=== PATIENT | male | born 1940 | race Caucasian/White ===

== ENCOUNTER 2016-06-18 18:04 | Inpatient (IN) | payer MEDICARE ==
[~2016-06-18] VITALS: Ht 180.3 cm; Wt 70.8 kg
[2016-06-18] MEDS ORDERED: FUROSEMIDE 40 MG/4 ML IV ONE (19:00)
[2016-06-18] MEDS ORDERED: SODIUM CHLORIDE FLUSH 10ML SYR IVF ONE (19:00)
[2016-06-18] MEDS ORDERED: FUROSEMIDE 40 MG/4 ML ONE (19:37)
[2016-06-18 19:49] LABS: ASPARTATE AMINO TRANSFERASE 16 U/L (15-37); BLOOD UREA NITROGEN 38 mg/dL (7-18)
[2016-06-18] MEDS ORDERED: LIDOCAINE 1%, 20ML ONE (19:51)
[2016-06-18 19:55] LABS: IS PT STATUS REG ER OR PRE ER? YES
[2016-06-18] MEDS ORDERED: SODIUM CHLORIDE 0.9% 1,000ML IVBOLUS ONE (20:00)
[2016-06-18] MEDS ORDERED: SODIUM CHLORIDE 0.9% 1,000 ML IV ONE (20:00)
[2016-06-18] MEDS ORDERED: PHEN100C PO (21:03)
[2016-06-18] MEDS ORDERED: AZIT500T PO (21:09)
[2016-06-18] MEDS ORDERED: METO25TA35 PO (21:09)
[2016-06-18] MEDS ORDERED: RIVA20TA PO (21:09)
[2016-06-18] MEDS ORDERED: CHOL200040 PO (21:09)
[2016-06-18] MEDS ORDERED: CYAN250013 PO (21:09)
[2016-06-18] MEDS ORDERED: HALO5TAB5 PO (21:09)
[2016-06-18] MEDS ORDERED: FOLI-17 PO (21:09)
[2016-06-18] MEDS ORDERED: SERT100T PO (21:09)
[2016-06-18] MEDS ORDERED: ACETAMINOPHEN 325 MG TABLET PO PRN (22:00)
[2016-06-18 22:26] VITALS: BP 126/53
[2016-06-18] MEDS ORDERED: ALBUTEROL/IPRATROPIUM 2.5MG/0.5MG, 3 ML NPPB PRN (23:00)
[2016-06-18 23:26] LABS: IS PT STATUS REG ER OR PRE ER? NO
[2016-06-19 00:48] VITALS: BP 124/78
[2016-06-19 06:29] LABS: BLOOD UREA NITROGEN 39 mg/dL (7-18)
[2016-06-19 06:47] VITALS: BP 150/81
[2016-06-19 07:03] LABS: IS PT STATUS REG ER OR PRE ER? NO
[2016-06-19] MEDS ORDERED: FUROSEMIDE 40 MG/4 ML ONE (08:40)
[2016-06-19] MEDS ORDERED: AZITHROMYCIN 500 MG TABLET PO SCH (09:00)
[2016-06-19] MEDS: SERTRALINE 100MG TABLET PO SCH (09:04)
[2016-06-19] MEDS: FUROSEMIDE 40 MG/4 ML IV SCH ×2 (09:04→17:16)
[2016-06-19] MEDS: CHOLECALCIFEROL 1,000 UNIT TABLET PO SCH (09:05)
[2016-06-19] MEDS: METOPROLOL TARTRATE 25 MG TABLET PO SCH (09:05)
[2016-06-19] MEDS: FOLIC ACID 1 MG TABLET PO SCH (09:05)
[2016-06-19] MEDS: CYANOCOBALAMIN 1,000 MCG TABLET PO SCH (09:05)
[2016-06-19] MEDS: HALOPERIDOL 1 MG TABLET PO SCH ×2 (09:06→20:11)
[2016-06-19] MEDS: PHENYTOIN 100 MG CAPSULE PO SCH ×2 (09:09→20:11)
[2016-06-19 12:50] LABS: IS PT STATUS REG ER OR PRE ER? NO
[2016-06-19 13:10] VITALS: BP 102/67
[2016-06-19 13:19] VITALS: BP 144/96
[2016-06-19 19:32] VITALS: BP 135/81
[2016-06-19] MEDS: RIVAROXABAN 20 MG TABLET PO SCH (20:11)
[2016-06-20 01:09] VITALS: BP 143/95
[2016-06-20 06:17] LABS: BLOOD UREA NITROGEN 41 mg/dL (7-18)
[2016-06-20 06:22] LABS: ASPARTATE AMINO TRANSFERASE 15 U/L (15-37); IS PT STATUS REG ER OR PRE ER? NO
[2016-06-20 06:38] LABS: HEMOGLOBIN 12.3 g/dL (13.7-18.0)
[2016-06-20 07:05] LABS: ANISOCYTOSIS 1+
[2016-06-20 07:06] LABS: OVALOCYTES 1+
[2016-06-20 07:55] VITALS: BP 131/86
[2016-06-20] MEDS: FOLIC ACID 1 MG TABLET PO SCH (08:01)
[2016-06-20] MEDS: SERTRALINE 100MG TABLET PO SCH (08:01)
[2016-06-20] MEDS: HALOPERIDOL 1 MG TABLET PO SCH ×2 (08:01→20:50)
[2016-06-20] MEDS: METOPROLOL TARTRATE 25 MG TABLET PO SCH (08:01)
[2016-06-20] MEDS: PHENYTOIN 100 MG CAPSULE PO SCH ×2 (08:01→20:49)
[2016-06-20] MEDS: CHOLECALCIFEROL 1,000 UNIT TABLET PO SCH (08:01)
[2016-06-20] MEDS: CYANOCOBALAMIN 1,000 MCG TABLET PO SCH (08:01)
[2016-06-20] MEDS ORDERED: REGADENOSON 0.4 MG/5 ML SYRINGE ONE (08:19)
[2016-06-20] MEDS ORDERED: FUROSEMIDE 40 MG/4 ML IV SCH (09:00)
[2016-06-20 13:32] VITALS: BP 132/69
[2016-06-20 20:05] VITALS: BP 141/83
[2016-06-20] MEDS: RIVAROXABAN 20 MG TABLET PO SCH (20:50)
[2016-06-21 01:52] VITALS: BP 126/69
[2016-06-21 05:45] LABS: HEMOGLOBIN 12.7 g/dL (13.7-18.0)
[2016-06-21 05:49] LABS: BLOOD UREA NITROGEN 36 mg/dL (7-18)
[2016-06-21 06:00] VITALS: BP 129/87
[2016-06-21] MEDS ORDERED: CARVEDILOL 3.125 MG TABLET PO SCH (06:00)
[2016-06-21 07:25] VITALS: BP 134/83
[2016-06-21] MEDS: PHENYTOIN 100 MG CAPSULE PO SCH ×2 (09:00→20:48)
[2016-06-21] MEDS: CHOLECALCIFEROL 1,000 UNIT TABLET PO SCH (09:36)
[2016-06-21] MEDS: SERTRALINE 100MG TABLET PO SCH (09:36)
[2016-06-21] MEDS: CYANOCOBALAMIN 1,000 MCG TABLET PO SCH (09:36)
[2016-06-21] MEDS: HALOPERIDOL 1 MG TABLET PO SCH ×2 (09:37→20:47)
[2016-06-21] MEDS: POTASSIUM CHLORIDE 20 MEQ TAB.ER.PRT PO SCH ×2 (09:37→13:34)
[2016-06-21] MEDS: FOLIC ACID 1 MG TABLET PO SCH (09:37)
[2016-06-21 12:10] VITALS: BP 108/71
[2016-06-21] MEDS: RIVAROXABAN 15 MG TABLET PO SCH (17:56)
[2016-06-21] MEDS: CARVEDILOL 6.25 MG TABLET PO SCH (17:57)
[2016-06-21 20:08] VITALS: BP 100/53
[2016-06-21] MEDS: ATORVASTATIN 20 MG TABLET PO SCH (20:49)
[2016-06-22 02:38] VITALS: BP 115/77
[2016-06-22 05:25] VITALS: BP 107/68
[2016-06-22] MEDS: CARVEDILOL 6.25 MG TABLET PO SCH ×2 (05:26→17:51)
[2016-06-22 06:12] LABS: HEMOGLOBIN 12.4 g/dL (13.7-18.0)
[2016-06-22 06:25] LABS: BLOOD UREA NITROGEN 37 mg/dL (7-18)
[2016-06-22 06:40] VITALS: BP 96/60
[2016-06-22] MEDS: POTASSIUM CHLORIDE 20 MEQ TAB.ER.PRT PO SCH ×2 (08:12→17:50)
[2016-06-22] MEDS: FUROSEMIDE 20 MG TABLET PO SCH (08:12)
[2016-06-22] MEDS: FOLIC ACID 1 MG TABLET PO SCH (08:13)
[2016-06-22] MEDS: CYANOCOBALAMIN 1,000 MCG TABLET PO SCH (08:13)
[2016-06-22] MEDS: PHENYTOIN 100 MG CAPSULE PO SCH ×2 (08:13→21:40)
[2016-06-22] MEDS: HALOPERIDOL 1 MG TABLET PO SCH ×2 (08:13→21:40)
[2016-06-22] MEDS: CHOLECALCIFEROL 1,000 UNIT TABLET PO SCH (08:14)
[2016-06-22] MEDS: SERTRALINE 100MG TABLET PO SCH (08:14)
[2016-06-22 12:40] VITALS: BP 97/65
[2016-06-22] MEDS: RIVAROXABAN 15 MG TABLET PO SCH (17:50)
[2016-06-22 20:53] VITALS: BP 92/63
[2016-06-22 21:35] VITALS: BP 100/67
[2016-06-22] MEDS: ATORVASTATIN 20 MG TABLET PO SCH (21:40)
[2016-06-23 02:19] VITALS: BP 100/67
[2016-06-23] MEDS: CARVEDILOL 6.25 MG TABLET PO SCH ×2 (06:09→17:20)
[2016-06-23 06:20] LABS: BLOOD UREA NITROGEN 38 mg/dL (7-18)
[2016-06-23 07:04] VITALS: BP 105/68
[2016-06-23] MEDS: POTASSIUM CHLORIDE 20 MEQ TAB.ER.PRT PO SCH (08:00)
[2016-06-23] MEDS: FOLIC ACID 1 MG TABLET PO SCH (08:32)
[2016-06-23] MEDS: PHENYTOIN 100 MG CAPSULE PO SCH ×2 (08:32→21:53)
[2016-06-23] MEDS: FUROSEMIDE 20 MG TABLET PO SCH (08:32)
[2016-06-23] MEDS: HALOPERIDOL 1 MG TABLET PO SCH ×2 (08:33→21:53)
[2016-06-23] MEDS: SERTRALINE 100MG TABLET PO SCH (08:33)
[2016-06-23] MEDS: CHOLECALCIFEROL 1,000 UNIT TABLET PO SCH (08:33)
[2016-06-23] MEDS: CYANOCOBALAMIN 1,000 MCG TABLET PO SCH (08:33)
[2016-06-23 13:13] VITALS: BP 119/68
[2016-06-23] MEDS: SODIUM CHLORIDE 0.9% 1,000 ML IV SCH (17:19)
[2016-06-23] MEDS: RIVAROXABAN 15 MG TABLET PO SCH (17:19)
[2016-06-23 20:30] VITALS: BP 111/69
[2016-06-23] MEDS: ATORVASTATIN 20 MG TABLET PO SCH (21:53)
[2016-06-24 01:44] VITALS: BP 119/77
[2016-06-24] MEDS: SODIUM CHLORIDE 0.9% 1,000 ML IV SCH (04:16)
[2016-06-24 06:19] LABS: BLOOD UREA NITROGEN 37 mg/dL (7-18)
[2016-06-24] MEDS: CARVEDILOL 6.25 MG TABLET PO SCH ×2 (06:22→16:39)
[2016-06-24 08:22] VITALS: BP 116/80
[2016-06-24] MEDS: PHENYTOIN 100 MG CAPSULE PO SCH (09:00)
[2016-06-24] MEDS: FOLIC ACID 1 MG TABLET PO SCH (09:36)
[2016-06-24] MEDS: HALOPERIDOL 1 MG TABLET PO SCH (09:37)
[2016-06-24] MEDS: CHOLECALCIFEROL 1,000 UNIT TABLET PO SCH (09:38)
[2016-06-24] MEDS: SERTRALINE 100MG TABLET PO SCH (09:38)
[2016-06-24] MEDS: CYANOCOBALAMIN 1,000 MCG TABLET PO SCH (09:45)
[2016-06-24] MEDS ORDERED: RIVA15TA PO (11:25)
[2016-06-24] MEDS ORDERED: METO25TA35 PO (11:25)
[2016-06-24] MEDS ORDERED: MULT-412 PO (11:25)
[2016-06-24] MEDS ORDERED: ATOR20TA9 PO (11:25)
[2016-06-24] MEDS ORDERED: FURO40TA6 PO (11:25)
[2016-06-24] MEDS ORDERED: IPRA3AMP NPPB (11:25)
[2016-06-24 12:49] VITALS: BP 120/79
[2016-06-24] MEDS: RIVAROXABAN 15 MG TABLET PO SCH (16:39)
[2016-06-25] MEDS ORDERED: FUROSEMIDE 40 MG TABLET PO SCH (07:30)
== END 2016-06-24 17:44 | disposition home health service (06) | DRG 280 ==
LOC: ED 20:29 → EDIP 20:30 → 4EST 22:10
PROVIDERS: ADMIT Internal Medicine; ATTEND Internal Medicine
PROC: 0W993ZZ Drainage of Right Pleural Cavity, Percutaneous Approach (ICD-10-PCS; principal; 2016-06-18)
PROC: BB4BZZZ Ultrasonography of Pleura (ICD-10-PCS; 2016-06-18)
DX: I13.0 Hypertensive heart and chronic kidney disease with heart failure and stage 1 through stage 4 chronic kidney disease, or unspecified chronic kidney disease (principal); I21.4 Non-ST elevation (NSTEMI) myocardial infarction; I50.43 Acute on chronic combined systolic (congestive) and diastolic (congestive) heart failure; N17.9 Acute kidney failure, unspecified; I47.2 Ventricular tachycardia; J98.11 Atelectasis; J90 Pleural effusion, not elsewhere classified; I42.9 Cardiomyopathy, unspecified; E86.0 Dehydration; F03.90 Unspecified dementia, unspecified severity, without behavioral disturbance, psychotic disturbance, mood disturbance, and anxiety; G40.909 Epilepsy, unspecified, not intractable, without status epilepticus; I08.1 Rheumatic disorders of both mitral and tricuspid valves; I27.2 Other secondary pulmonary hypertension; I48.91 Unspecified atrial fibrillation; I49.3 Ventricular premature depolarization; M81.0 Age-related osteoporosis without current pathological fracture; N18.3 Chronic kidney disease, stage 3 (moderate); Z66 Do not resuscitate; Z79.01 Long term (current) use of anticoagulants; Z82.49 Family history of ischemic heart disease and other diseases of the circulatory system; Z86.711 Personal history of pulmonary embolism; Z86.718 Personal history of other venous thrombosis and embolism; Z87.891 Personal history of nicotine dependence; Z91.041 Radiographic dye allergy status
CPT/HCPCS: 32555; 36415; 71010; 71020; 78452; 80048; 80053; 80185; 82040; 82150; 82306; 82607; 82746; 82945; 83605; 83615; 83735; 83880; 83986; 84132; 84157; 84439; 84443; 84484; 85025; 85610; 85730; 87040; 87070; 87205; 89051; 93005; 93017; 93306; 96374; J1940; J2785; J3490; A9502; C9898; J7030

== ENCOUNTER → 2016-06-18 | Outpatient (CLI) | payer MEDICARE ==
[~2016-06-18] MED LIST: AZIT500T PO; CHOL200040 PO; CYAN250013 PO; FOLI-17 PO; HALO5TAB5 PO; METO25TA35 PO; PHEN100C PO; RIVA20TA PO; SERT100T PO
[2016-06-18 12:31] LABS: HEMOGLOBIN 12.2 g/dL (13.7-18.0)
[2016-06-18 12:36] LABS: ASPARTATE AMINO TRANSFERASE 17 U/L (15-37); BLOOD UREA NITROGEN 33 mg/dL (7-18)
== END | disposition home or self-care (01) ==
LOC: CFH 10:21
PROVIDERS: ATTEND Physician Assistant
DX: J90 Pleural effusion, not elsewhere classified (principal); J98.11 Atelectasis; M45.4 Ankylosing spondylitis of thoracic region; M45.6 Ankylosing spondylitis lumbar region; I10 Essential (primary) hypertension; D64.9 Anemia, unspecified; N28.89 Other specified disorders of kidney and ureter
CPT/HCPCS: 36415; 71020; 80053; 85025

== ENCOUNTER 2016-07-07 11:58 | Inpatient (IN) | payer MEDICARE ==
[~2016-07-07] VITALS: Ht 180.3 cm; Wt 73.0 kg
[~2016-07-07 11:58] MED LIST changes: +ATOR20TA9 PO; +FURO40TA6 PO; +IPRA3AMP NPPB; +MULT-412 PO; +RIVA15TA PO
[2016-07-07] MEDS ORDERED: SODIUM CHLORIDE FLUSH 10ML SYR IVF ONE (13:00)
[2016-07-07 13:14] LABS: BLOOD UREA NITROGEN 36 mg/dL (7-18)
[2016-07-07 13:37] LABS: IS PT STATUS REG ER OR PRE ER? YES
[2016-07-07] MEDS ORDERED: ENOXAPARIN 80 MG/0.8 ML SQ ONE (14:30)
[2016-07-07] MEDS ORDERED: FUROSEMIDE 40 MG/4 ML IVPush ONE (14:30)
[2016-07-07] MEDS ORDERED: ASPIRIN 81 MG TABLET CHEW PO ONE (14:30)
[2016-07-07] MEDS ORDERED: LEVOFLOXACIN/PMX 750MG/150ML 150 ML IV ONE (14:30)
[2016-07-07] MEDS ORDERED: ASPIRIN 81 MG TABLET CHEW ONE (14:34)
[2016-07-07] MEDS ORDERED: FUROSEMIDE 40 MG/4 ML ONE (14:34)
[2016-07-07] MEDS ORDERED: ENOXAPARIN 80 MG/0.8 ML ONE (14:34)
[2016-07-07] MEDS ORDERED: LEVOFLOXACIN/PMX 750MG/150ML 150 ML ONE (14:35)
[2016-07-07] MEDS ORDERED: ONDANSETRON 2MG/ML, 2ML IVP PRN (15:00)
[2016-07-07] MEDS ORDERED: ALBUTEROL/IPRATROPIUM 2.5MG/0.5MG, 3 ML NPPB PRN (15:00)
[2016-07-07] MEDS ORDERED: ONDANSETRON ODT 4 MG PO PRN (15:00)
[2016-07-07] MEDS ORDERED: LABETALOL 5MG/ML, 20ML IV PRN (15:00)
[2016-07-07] MEDS ORDERED: POLYETHYLENE GLYCOL 17 GM PACKET PO PRN (15:00)
[2016-07-07] MEDS ORDERED: DIPHENHYDRAMINE 50 MG/ML, 1ML IVPush ONE (15:30)
[2016-07-07 15:33] VITALS: BP 106/71
[2016-07-07 15:34] LABS: IS PT STATUS REG ER OR PRE ER? YES
[2016-07-07 17:05] VITALS: BP 118/71
[2016-07-07] MEDS: RIVAROXABAN 15 MG TABLET PO SCH (17:06)
[2016-07-07] MEDS: FUROSEMIDE 40 MG/4 ML IV SCH (17:06)
[2016-07-07] MEDS ORDERED: PNEUMOCOCCAL 23 VACCINE IM-VACC ONE (18:00)
[2016-07-07 19:08] VITALS: BP 98/61
[2016-07-07] MEDS ORDERED: HALOPERIDOL 5 MG TABLET PO SCH (21:00)
[2016-07-07] MEDS: PHENYTOIN 100 MG CAPSULE PO SCH (21:14)
[2016-07-07] MEDS: ATORVASTATIN 20 MG TABLET PO SCH (21:14)
[2016-07-07] MEDS: METOPROLOL TARTRATE 25 MG TABLET PO SCH (21:14)
[2016-07-07 21:42] LABS: IS PT STATUS REG ER OR PRE ER? NO
[2016-07-08 01:21] VITALS: BP 107/65
[2016-07-08 06:08] LABS: ASPARTATE AMINO TRANSFERASE 15 U/L (15-37); BLOOD UREA NITROGEN 38 mg/dL (7-18)
[2016-07-08 07:54] VITALS: BP 141/85
[2016-07-08] MEDS: METOPROLOL TARTRATE 25 MG TABLET PO SCH ×2 (08:25→20:38)
[2016-07-08] MEDS: SENNA/DOCUSATE TABLET PO SCH (08:25)
[2016-07-08] MEDS: SERTRALINE 100MG TABLET PO SCH (08:25)
[2016-07-08] MEDS: FUROSEMIDE 40 MG/4 ML IV SCH ×2 (08:26→17:48)
[2016-07-08] MEDS: CHOLECALCIFEROL 1,000 UNIT TABLET PO SCH (08:26)
[2016-07-08] MEDS: PHENYTOIN 100 MG CAPSULE PO SCH ×2 (08:26→20:38)
[2016-07-08] MEDS: FOLIC ACID 1 MG TABLET PO SCH (08:26)
[2016-07-08] MEDS: MULTIVITAMIN 1 TABLET PO SCH (08:26)
[2016-07-08] MEDS: GUAIFENESIN/DM 200-20MG, 10ML UDC PO PRN (08:28)
[2016-07-08] MEDS: CYANOCOBALAMIN 1,000 MCG TABLET PO SCH (08:28)
[2016-07-08] MEDS: HALOPERIDOL 0.5 MG TABLET PO SCH ×2 (10:24→20:39)
[2016-07-08] MEDS ORDERED: POTASSIUM CHLORIDE 20 MEQ TAB.ER.PRT PO ONE (12:00)
[2016-07-08] MEDS ORDERED: PNEUMOCOCCAL 23 VACCINE IM-VACC ONE (13:00)
[2016-07-08 14:36] VITALS: BP 112/66
[2016-07-08] MEDS: RIVAROXABAN 15 MG TABLET PO SCH (17:48)
[2016-07-08 19:45] VITALS: BP 123/74
[2016-07-08] MEDS: ATORVASTATIN 20 MG TABLET PO SCH (20:38)
[2016-07-09 01:06] VITALS: BP 112/68
[2016-07-09 08:32] VITALS: BP 156/77
[2016-07-09] MEDS: CYANOCOBALAMIN 1,000 MCG TABLET PO SCH (09:50)
[2016-07-09] MEDS: PHENYTOIN 100 MG CAPSULE PO SCH ×2 (09:50→22:09)
[2016-07-09] MEDS: MULTIVITAMIN 1 TABLET PO SCH (09:50)
[2016-07-09] MEDS: SENNA/DOCUSATE TABLET PO SCH (09:50)
[2016-07-09] MEDS: SERTRALINE 100MG TABLET PO SCH (09:50)
[2016-07-09] MEDS: METOPROLOL TARTRATE 25 MG TABLET PO SCH ×2 (09:51→22:09)
[2016-07-09] MEDS: FOLIC ACID 1 MG TABLET PO SCH (09:51)
[2016-07-09] MEDS: CHOLECALCIFEROL 1,000 UNIT TABLET PO SCH (09:51)
[2016-07-09] MEDS: HALOPERIDOL 0.5 MG TABLET PO SCH ×2 (10:22→22:08)
[2016-07-09] MEDS ORDERED: HEPARIN 25,000 UNITS/500ML PMX 500 ML IV PRN (12:00)
[2016-07-09 14:56] VITALS: BP 120/54
[2016-07-09 18:53] VITALS: BP 119/67
[2016-07-09] MEDS ORDERED: APIXABAN 2.5 MG TABLET PO SCH (21:00)
[2016-07-09] MEDS: ATORVASTATIN 20 MG TABLET PO SCH (22:09)
[2016-07-09] MEDS: APIXABAN 2.5 MG TABLET PO SCH (22:09)
[2016-07-10] VITALS (8 sets, daily range): BP systolic 97–129; BP diastolic 57–80
[2016-07-10] MEDS ORDERED: POTASSIUM CHLORIDE 20 MEQ TAB.ER.PRT ONE (04:23)
[2016-07-10] MEDS ORDERED: POTASSIUM CHLORIDE 20 MEQ TAB.ER.PRT PO ONE (04:30)
[2016-07-10 05:44] LABS: BLOOD UREA NITROGEN 40 mg/dL (7-18)
[2016-07-10 05:51] LABS: ASPARTATE AMINO TRANSFERASE 9 U/L (15-37)
[2016-07-10 05:54] LABS: IS PT STATUS REG ER OR PRE ER? NO
[2016-07-10] MEDS ORDERED: PHARMACY MAY ADJ FOR RENAL FX MC PRN (08:00)
[2016-07-10] MEDS ORDERED: HALOPERIDOL 0.5 MG TABLET PO PRN (08:00)
[2016-07-10] MEDS: PHENYTOIN 100 MG CAPSULE PO SCH ×2 (09:00→23:40)
[2016-07-10] MEDS: FUROSEMIDE 40 MG/4 ML IV SCH (09:00)
[2016-07-10] MEDS: FOLIC ACID 1 MG TABLET PO SCH (09:01)
[2016-07-10] MEDS: METOPROLOL TARTRATE 25 MG TABLET PO SCH (09:01)
[2016-07-10] MEDS: SERTRALINE 100MG TABLET PO SCH (09:01)
[2016-07-10] MEDS: MULTIVITAMIN 1 TABLET PO SCH (09:01)
[2016-07-10] MEDS: CYANOCOBALAMIN 1,000 MCG TABLET PO SCH (09:01)
[2016-07-10] MEDS: APIXABAN 2.5 MG TABLET PO SCH ×2 (09:02→23:40)
[2016-07-10] MEDS: SENNA/DOCUSATE TABLET PO SCH (09:02)
[2016-07-10] MEDS: CHOLECALCIFEROL 1,000 UNIT TABLET PO SCH (09:03)
[2016-07-10] MEDS: METOPROLOL TARTRATE 50 MG TABLET PO SCH (23:40)
[2016-07-10] MEDS: ATORVASTATIN 20 MG TABLET PO SCH (23:40)
[2016-07-11] MEDS: GUAIFENESIN/DM 200-20MG, 10ML UDC PO PRN ×2 (00:45→17:32)
[2016-07-11 03:14] VITALS: BP 112/73
[2016-07-11 07:38] VITALS: BP 122/78
[2016-07-11] MEDS: PHENYTOIN 100 MG CAPSULE PO SCH ×2 (08:45→21:48)
[2016-07-11] MEDS: FUROSEMIDE 40 MG/4 ML IV SCH (08:45)
[2016-07-11] MEDS: FOLIC ACID 1 MG TABLET PO SCH (08:46)
[2016-07-11] MEDS: APIXABAN 2.5 MG TABLET PO SCH ×2 (08:46→21:48)
[2016-07-11] MEDS: MULTIVITAMIN 1 TABLET PO SCH (08:46)
[2016-07-11] MEDS: SENNA/DOCUSATE TABLET PO SCH (08:47)
[2016-07-11] MEDS: CHOLECALCIFEROL 1,000 UNIT TABLET PO SCH (08:47)
[2016-07-11] MEDS: SERTRALINE 100MG TABLET PO SCH (08:47)
[2016-07-11] MEDS: CYANOCOBALAMIN 1,000 MCG TABLET PO SCH (08:47)
[2016-07-11 09:00] LABS: BLOOD UREA NITROGEN 42 mg/dL (7-18)
[2016-07-11 11:35] VITALS: BP 113/63
[2016-07-11] MEDS: METOPROLOL TARTRATE 50 MG TABLET PO SCH ×2 (11:37→21:48)
[2016-07-11 13:41] VITALS: BP 110/61
[2016-07-11] MEDS ORDERED: APIX2.5T PO (14:55)
[2016-07-11] MEDS ORDERED: METO50TA82 PO (14:55)
[2016-07-11] MEDS ORDERED: FUROSEMIDE 20 MG/2 ML IV ONE ×2 (16:30→18:30)
[2016-07-11 18:38] VITALS: BP 121/77
[2016-07-11] MEDS: ATORVASTATIN 20 MG TABLET PO SCH (21:48)
[2016-07-12 00:27] VITALS: BP 115/75
[2016-07-12 06:05] LABS: BLOOD UREA NITROGEN 44 mg/dL (7-18)
[2016-07-12 06:08] LABS: ASPARTATE AMINO TRANSFERASE 15 U/L (15-37)
[2016-07-12 06:45] VITALS: BP 113/74
[2016-07-12] MEDS: FUROSEMIDE 40 MG/4 ML IV SCH (09:56)
[2016-07-12] MEDS: PHENYTOIN 100 MG CAPSULE PO SCH (09:56)
[2016-07-12] MEDS: FOLIC ACID 1 MG TABLET PO SCH (09:56)
[2016-07-12] MEDS: APIXABAN 2.5 MG TABLET PO SCH (09:56)
[2016-07-12] MEDS: MULTIVITAMIN 1 TABLET PO SCH (09:57)
[2016-07-12] MEDS: CYANOCOBALAMIN 1,000 MCG TABLET PO SCH (09:57)
[2016-07-12] MEDS: METOPROLOL TARTRATE 50 MG TABLET PO SCH (09:57)
[2016-07-12] MEDS: SERTRALINE 100MG TABLET PO SCH (09:57)
[2016-07-12] MEDS: CHOLECALCIFEROL 1,000 UNIT TABLET PO SCH (09:57)
[2016-07-12] MEDS: SENNA/DOCUSATE TABLET PO SCH (09:57)
[2016-07-12] MEDS ORDERED: FURO-93 PO (10:19)
[2016-07-12] MEDS ORDERED: POTA20PA8 PO (10:21)
[2016-07-12] MEDS ORDERED: ALBU8.5H3 INH (10:23)
[2016-07-12 12:38] VITALS: BP 105/70
== END 2016-07-12 16:40 | DRG 291 ==
LOC: ED 14:18 → EDIP 14:21 → 5SO 15:34
PROVIDERS: ADMIT Family Medicine; ATTEND Family Medicine
DX: I13.0 Hypertensive heart and chronic kidney disease with heart failure and stage 1 through stage 4 chronic kidney disease, or unspecified chronic kidney disease (principal); J96.01 Acute respiratory failure with hypoxia; E43 Unspecified severe protein-calorie malnutrition; I50.43 Acute on chronic combined systolic (congestive) and diastolic (congestive) heart failure; I47.2 Ventricular tachycardia; I42.9 Cardiomyopathy, unspecified; I34.0 Nonrheumatic mitral (valve) insufficiency; N18.9 Chronic kidney disease, unspecified; F03.90 Unspecified dementia, unspecified severity, without behavioral disturbance, psychotic disturbance, mood disturbance, and anxiety; G40.909 Epilepsy, unspecified, not intractable, without status epilepticus; I25.10 Atherosclerotic heart disease of native coronary artery without angina pectoris; I27.2 Other secondary pulmonary hypertension; J44.9 Chronic obstructive pulmonary disease, unspecified; M81.0 Age-related osteoporosis without current pathological fracture; Z79.82 Long term (current) use of aspirin; Z79.899 Other long term (current) drug therapy; Z82.49 Family history of ischemic heart disease and other diseases of the circulatory system; Z86.711 Personal history of pulmonary embolism; Z86.718 Personal history of other venous thrombosis and embolism; Z87.891 Personal history of nicotine dependence; Z68.22 Body mass index [BMI] 22.0-22.9, adult; Z88.1 Allergy status to other antibiotic agents
CPT/HCPCS: 36415; 71010; 80048; 80053; 82040; 83690; 83735; 83880; 84100; 84439; 84443; 84484; 85025; 85520; 85610; 93005; 94640; 96374; J1940; J1956; J7620; J1200